=== PATIENT | female | born 2000 | race Caucasian/White ===

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

== ENCOUNTER 2023-02-03 15:31 | Emergency (ER) | payer OTHER, SELFPAY ==
[2023-02-03 15:37] VITALS: BP 126/89; PULSE 103; RESP 20; TEMP 36.7; O2SAT 99; BMI 20.7
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
[2023-02-03] MEDS: acetaminophen 325 mg Tablet 650 MG PO (16:07)
== END 2023-02-03 16:09 | disposition home or self-care (01) ==
PROVIDERS: Emergency Provider Internal Medicine; PCP Nurse Practitioner Family
DX: S00.03XA Contusion of scalp, initial encounter (principal); R51.9 Headache, unspecified; V49.9XXA Car occupant (driver) (passenger) injured in unspecified traffic accident, initial encounter
CPT/HCPCS: 99283

== ENCOUNTER 2023-03-13 14:48 | Outpatient (CLI) | payer OTHER, SELFPAY ==
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
== END 2023-03-13 14:49 | disposition home or self-care (01) ==
LOC: RAD 14:49
PROVIDERS: PCP Nurse Practitioner Family; Visit Provider Nurse Practitioner Family
DX: S09.8XXD Other specified injuries of head, subsequent encounter (principal); V89.2XXD Person injured in unspecified motor-vehicle accident, traffic, subsequent encounter; M54.2 Cervicalgia
CPT/HCPCS: 70450; 72125

== ENCOUNTER → 2024-08-14 13:26 | Outpatient (BNVA) | payer OTHER, SELFPAY | PROVIDERS: Visit Provider Nurse Practitioner Women's Health | DX: Z12.4 Encounter for screening for malignant neoplasm of cervix (principal) | CPT/HCPCS: 88175 ==